=== PATIENT | male | born 1955 | race Caucasian/White ===

== ENCOUNTER 2017-03-09 13:05 | Day surgery (SDC) | payer OTHER ==
[~2017-03-09] VITALS: Ht 170.2 cm; Wt 66.4 kg
[2017-03-09 13:58] VITALS: Ht 170.2 cm; Wt 66.4 kg
[2017-03-09 16:09] VITALS: BP 164/85; PULSE 55; RESP 22
[2017-03-09] MEDS ORDERED: PROPOFOL 20 ML ONE (16:42)
[2017-03-09] MEDS ORDERED: MIDAZOLAM 1 MG/ML 2 ML INJ ONE (16:42)
[2017-03-09 17:31] VITALS: BP 152/90; PULSE 61; RESP 18
--- NOTE | 2017-03-12 17:04 | OPR ---
Date/Time of Note Date/Time of Note DATE: 03/12/17 TIME: 17:02 Operative Report Preoperative Diagnosis * Colorectal cancer screening Postoperative Diagnosis Impression: * Normal colonic mucosa to cecum * Moderate-sized internal hemorrhoids Plan: * High-fiber diet * Annual Hemoccult stool testing * Screening colonoscopy in 10 years . Operation/Procedure Performed * Colonoscopy Surgeon: CELIA HUERTA MD Anesthesia: MAC Estimated Blood Loss: none Specimens * None Grafts/Implants * None Complications: None CELIA HUERTA MD Mar 12, 2017 17:04
== END 2017-03-09 18:03 | disposition home or self-care (01) ==
LOC: GIL 13:05
PROVIDERS: ATTEND Internal Medicine Gastroenterology
DX: Z12.11 Encounter for screening for malignant neoplasm of colon (principal); K64.8 Other hemorrhoids
CPT/HCPCS: 45378; J2250; Z7610